=== PATIENT | female | born 1980 | race Caucasian/White ===

== ENCOUNTER 2017-03-25 18:47 | Emergency (ER) | payer OTHER ==
[~2017-03-25] VITALS: Ht 165.1 cm; Wt 59.3 kg
[~2017-03-25 18:47] MED LIST: AUGMENTIN875 MG PO; COLACE100 MG PO; DOCUSATE SODIU100 MG PO; ENDOCET 5-3251 EACH PO; FEOSOL325 MG PO; FERROUS SULFAT325 MG PO; IBUPROFEN800 MG PO; IMITREX25 MG PO; IMITREX50 MG PO; IRON325 MG PO; KEFLEX500 MG PO; MACROBID100 MG PO; MOTRIN800 MG PO; NASALCROM NASAL13 ML BOTH NARES; PERCOCET 5/31 TABLET PO; PRENATAL TABLE1 EAC3 PO; PROMETHAZINE HC25 M1 PO; SUBOXONE 8 MG-1 EAC2 SL; SUMATRIPTAN SUC50 MG PO; ULTRAM50 MG PO; ZANTAC150 MG PO; ZOFRAN4 MG PO; ZYRTEC10 M2 PO
[2017-03-25] MEDS ORDERED: NORCO 5/3251 TABLET PO (19:13)
[2017-03-25] MEDS ORDERED: AMOXICILLIN500 MG PO (19:13)
[2017-03-25] MEDS ORDERED: SKELAXIN800 MG PO (19:15)
[2017-03-25 19:24] VITALS: BP 127/72
== END 2017-03-25 19:25 | disposition home or self-care (01) ==
LOC: EXP 18:47 → EME 18:47 → EXP 19:25
DX: K08.89 Other specified disorders of teeth and supporting structures (principal); M26.602 Left temporomandibular joint disorder, unspecified
CPT/HCPCS: 99281; 99283

== ENCOUNTER 2017-06-07 19:43 | Emergency (ER) | payer OTHER ==
[~2017-06-07] VITALS: Ht 162.6 cm; Wt 59.7 kg
[~2017-06-07 19:43] MED LIST changes: +AMOXICILLIN500 MG PO; +NORCO 5/3251 TABLET PO; +SKELAXIN800 MG PO
[2017-06-07] MEDS ORDERED: TYLENOL WITH C1 EACH PO (21:28)
[2017-06-07] MEDS ORDERED: AMOXICILLIN500 MG PO (21:28)
[2017-06-07 21:45] VITALS: BP 121/73
== END 2017-06-07 21:45 | disposition home or self-care (01) ==
LOC: EXP 19:43 → EME 19:43 → EXP 21:45
DX: J02.0 Streptococcal pharyngitis (principal)
CPT/HCPCS: 87651 90; 99281; 99283